=== PATIENT | male | born 1965 | race Two or more races ===

== ENCOUNTER 2023-06-14 16:33 | Inpatient (IN) | payer OTHER ==
[~2023-06-14] VITALS: Ht 165.1 cm; Wt 65.6 kg
[2023-06-14 17:32] LABS: Urine Bacteria None Seen /hpf (None Seen)
[2023-06-14 17:43] LABS: Urine Blood Negative /uL (Negative); Urine Clarity Clear (Clear); Urine Color Light-Yellow (Yellow); Urine Protein, UAD Negative (Negative); Urine Specific Gravity 1.018 (1.001-1.035); Urine Urobilinogen Normal (Negative); Urine WBC <1 /hpf (0 - 3)
[2023-06-14 19:08] LABS: Basophils # (auto) 0 10 ^3/uL (0-0.2); Basophils % (auto) 0.2 % (0.0-2.0); Eosinophils # (auto) 0 10 ^3/uL (0-0.8); Eosinophils % (auto) 0.1 % (0.0-7.0); Hematocrit 46.5 % (41.0-53.0); Hemoglobin 15.7 g/dL (13.5-17.5); Lymphocytes # (auto) 1.5 10 ^3/uL (0.4-5.4); Lymphocytes % (auto) 9.1 % (10.0-50.0); Mean Corpuscular Hemoglobin 30.5 pg (28.0-32.0); Mean Corpuscular Hgb Conc. 33.9 g/dL (32.0-36.0); Mean Corpuscular Volume 90.2 fL (80.0-100.0); Monocytes # (auto) 0.8 10 ^3/uL (0-1.3); Monocytes % (auto) 5.1 % (0.0-12.0); Neutrophils # (auto) 13.7 10 ^3/uL (1.6-8.6); Neutrophils % (auto) 85.5 % (37.0-80.0); Nucleated Red Blood Cells % 0.1 %; Red Blood Cells 5.15 10^6/uL (4.5-5.90); Red Cell Distribution Width 13.5 % (11.8-14.3); White Blood Cell 16.1 10^3/uL (4.4-10.8)
[2023-06-14 19:29] LABS: Alanine Aminotransferase 36 U/L (7-40); Albumin 4.4 g/dL (3.2-4.8); Alkaline Phosphatase 129 U/L (46-116); Anion Gap 7 (5-15); Aspartate Aminotransferase 27 U/L (13-40); BUN/Creatinine Ratio 15.3 (10.0-20.0); Blood Urea Nitrogen 15 mg/dL (9-23); Carbon Dioxide 24 mmol/L (20-30); Chloride 101 mmol/L (98-107); Glucose 202 mg/dL (74-106); Lipase 29 U/L (12-53); Sodium 132 mmol/L (136-145)
[2023-06-14 19:30] LABS: Bilirubin, Total 1.2 mg/dL (0.2-1.0)
[2023-06-14] MEDS ORDERED: MORPHINE SULFATE INJ 2 MG/ml SYRG IV PRN (21:15)
[2023-06-14] MEDS ORDERED: ONDANSETRON HCL 4 MG/2 ML VIAL IV PRN (21:15)
[2023-06-14] MEDS ORDERED: HYDROcodone-ACET 5/325MG TAB PO PRN (21:15)
[2023-06-14] MEDS ORDERED: TEMAZEPAM 15 MG CAP PO PRN (21:15)
[2023-06-14] MEDS ORDERED: ACETAMINOPHEN 325 MG TAB PO PRN (21:15)
[2023-06-15] MEDS: MORPHINE SULFATE 4 MG/ML SYR/VIAL IV ONE (01:21)
[2023-06-15] MEDS: SODIUM CHLORIDE 0.9% 1,000 ML IV ONE (01:21)
[2023-06-15] MEDS: KETOROLAC TROMETH 30 MG/ML 1ML VIAL IV ONE (01:21)
[2023-06-15] MEDS: cefTRIAXone 2GM/50ML D5W 50 ML IV ONE (01:22)
[2023-06-15] MEDS: PANTOPRAZOLE 40 MG/10 ML VIAL INJ IV ONE (02:03)
[2023-06-15] MEDS: cefTRIAXone 1GM/50ML D5W 50 ML IV ONE (02:03)
[2023-06-15] MEDS: TAMSULOSIN HYDROCHLORIDE 0.4 MG CAP PO ONE (02:03)
[2023-06-15 04:01] VITALS: BP 112/77; PULSE 78; RESP 16; TEMP 98.2; O2SAT 95
[2023-06-15 05:00] VITALS: BP 112/77; PULSE 78; RESP 16; TEMP 98.2; O2SAT 95
[2023-06-15 08:00] VITALS: BP 119/61; PULSE 95; RESP 17; TEMP 98.1
[2023-06-15 09:00] VITALS: BP 112/81; PULSE 83; RESP 18; TEMP 97.8; O2SAT 95
[2023-06-15 09:54] LABS: Basophils # (auto) 0 10 ^3/uL (0-0.2); Basophils % (auto) 0.1 % (0.0-2.0); Eosinophils # (auto) 0.1 10 ^3/uL (0-0.8); Eosinophils % (auto) 0.8 % (0.0-7.0); Hematocrit 42.7 % (41.0-53.0); Hemoglobin 14.5 g/dL (13.5-17.5); Lymphocytes # (auto) 1.9 10 ^3/uL (0.4-5.4); Lymphocytes % (auto) 19.1 % (10.0-50.0); Mean Corpuscular Hemoglobin 30.8 pg (28.0-32.0); Mean Corpuscular Volume 90.7 fL (80.0-100.0); Monocytes # (auto) 0.7 10 ^3/uL (0-1.3); Monocytes % (auto) 7.1 % (0.0-12.0); Neutrophils # (auto) 7.3 10 ^3/uL (1.6-8.6); Neutrophils % (auto) 72.9 % (37.0-80.0); Nucleated Red Blood Cells % 0.1 %; Red Blood Cells 4.72 10^6/uL (4.5-5.90); Red Cell Distribution Width 13.3 % (11.8-14.3)
[2023-06-15 10:04] LABS: Chloride 106 mmol/L (98-107); Potassium 3.6 mmol/L (3.5-5.1); Sodium 138 mmol/L (136-145)
[2023-06-15 10:05] LABS: Anion Gap 10 (5-15); Carbon Dioxide 22 mmol/L (20-30)
[2023-06-15 10:06] LABS: Calcium 8.9 mg/dL (8.5-10.1)
[2023-06-15 10:10] LABS: Glucose 285 mg/dL (74-106)
[2023-06-15 10:11] LABS: BUN/Creatinine Ratio 9.8 (10.0-20.0); Blood Urea Nitrogen 11 mg/dL (9-23)
[2023-06-15 12:01] VITALS: BP 112/81; PULSE 83; RESP 18; TEMP 36.6; O2SAT 95
[2023-06-15] MEDS ORDERED: cefTRIAXone 1GM/50ML D5W 50 ML IV SCH (21:00)
== END 2023-06-15 13:07 | disposition home or self-care (01) | DRG 694 ==
LOC: ER 16:33 → OVERFLOW 21:05 → CENTRAL 06-15 03:22
PROVIDERS: ADMIT Nurse Practitioner; ATTEND Internal Medicine Geriatric Medicine
DX: N13.2 Hydronephrosis with renal and ureteral calculous obstruction (principal); K80.20 Calculus of gallbladder without cholecystitis without obstruction; I10 Essential (primary) hypertension; D72.829 Elevated white blood cell count, unspecified; K40.90 Unilateral inguinal hernia, without obstruction or gangrene, not specified as recurrent; N13.9 Obstructive and reflux uropathy, unspecified; K21.9 Gastro-esophageal reflux disease without esophagitis
CPT/HCPCS: 36415; 74176; 80048; 80053; 81001; 83690; 84484; 85025; 93005; C9113; G0378